=== PATIENT | female | born 1960 | race Caucasian/White ===

== ENCOUNTER 2018-05-26 14:15 | Emergency (ER) | payer BC ==
--- NOTE | 2018-05-26 16:14 | EDM.PDOCBH ---
<Niall Petty - Last Filed: 05/27/18 09:12> ED HPI GENERAL MEDICAL PROBLEM - General Chief Complaint: Drug or Alcohol Abuse Stated Complaint: ALCOHOL ABUSE Time Seen by Provider: 05/26/18 14:54 - Related Data Allergies Allergy/AdvReac Type Severity Reaction Status Date / Time cephalexin Allergy Rash Verified 05/26/18 14:39 Home Meds: Home Meds Ondansetron [Zofran ODT] 4 mg PO Q6H PRN #10 tab.dis 05/27/18 [Rx] COURSE, BEHAVIORAL HEALTH COMP - Course Vital Signs: Last Vital Signs Temp 36.6 C 05/27/18 01:14 Pulse 90 05/27/18 09:05 Resp 16 05/27/18 09:05 BP 150/98 H 05/27/18 09:05 Pulse Ox 95 05/27/18 09:05 Orders, Labs, Meds: Laboratory Tests 05/26/18 05/26/18 05/26/18 Range/Units 16:11 16:14 16:14 WBC 5.29 (3.98-10.04) K/mm3 RBC 4.40 (3.98-5.22) M/mm3 Hgb 15.3 (11.2-15.7) gm/L Hct 45.8 H (34.1-44.9) % MCV 104.1 H (79.4-94.8) fl MCH 34.8 H (25.6-32.2) pg MCHC 33.4 (32.2-35.5) g/dl RDW Std Deviation 50.0 H (36.4-46.3) fL Plt Count 250 (182-369) K/mm3 MPV 8.9 L (9.4-12.3) fl Neutrophils % (Manual) 54 (40-60) % Band Neutrophils % 0 (0-10) % Lymphocytes % (Manual) 39 (20-40) % Atypical Lymphs % 0 % Monocytes % (Manual) 5 (2-10) % Eosinophils % (Manual) 0 L (0.7-5.8) % Basophils % (Manual) 2 H (0.1-1.2) Platelet Estimate Adequate RBC Morph Comment Normal Sodium 144 (136-145) mEq/L Potassium 3.9 (3.5-5.1) mEq/L Chloride 107 (98-107) mEq/L Carbon Dioxide 24 (21-32) mEq/L Anion Gap 16.9 H (5-15) BUN 7 (7-18) mg/dL Creatinine 0.7 (0.55-1.02) mg/dL Est Cr Clr Drug Dosing 70.13 mL/min Estimated GFR (MDRD) > 60 (>60) mL/min BUN/Creatinine Ratio 10.0 L (14-18) Glucose 94 (74-106) mg/dL Calcium 9.0 (8.5-10.1) mg/dL Magnesium 1.9 (1.8-2.4) mg/dl Total Bilirubin 0.5 (0.2-1.0) mg/dL AST 206 H (15-37) U/L ALT 87 H (14-59) U/L Alkaline Phosphatase 94 (46-116) U/L Total Protein 7.1 (6.4-8.2) g/dl Albumin 3.6 (3.4-5.0) g/dl Globulin 3.5 gm/dL Albumin/Globulin Ratio 1.0 (1-2) TSH 3rd Generation 1.180 (0.358-3.74) uIU/mL Salicylates (2.8-20) mg/dL Urine Opiates Screen Negative (LMLRMS=612) Ur Buprenorphine Scrn Negative (CUTOFF=10) Ur Oxycodone Screen Negative (UJG7QC=821) Urine Methadone Screen Negative (ENYCXH=508) Ur Propoxyphene Screen Negative (BNWQKJ=069) Acetaminophen 0 L (10-30) ug/mL Ur Barbiturates Screen Negative (ZPSUDT=169) Ur Tricyclics Screen Negative (PJTONG=210) Ur Phencyclidine Scrn Negative (CUTOFF=25) Ur Amphetamine Screen Negative (HPMPCO=035) U Methamphetamines Scrn Negative (KFEGAI=712) U Benzodiazepines Scrn Negative (GJYJJX=177) U Cocaine Metab Screen Negative (HTFYNE=442) U Marijuana (THC) Screen Negative (CUTOFF=50) Ethyl Alcohol 0.37 (0.00) gm% 05/26/18 Range/Units 16:14 WBC (3.98-10.04) K/mm3 RBC (3.98-5.22) M/mm3 Hgb (11.2-15.7) gm/L Hct (34.1-44.9) % MCV (79.4-94.8) fl MCH (25.6-32.2) pg MCHC (32.2-35.5) g/dl RDW Std Deviation (36.4-46.3) fL Plt Count (182-369) K/mm3 MPV (9.4-12.3) fl Neutrophils % (Manual) (40-60) % Band Neutrophils % (0-10) % Lymphocytes % (Manual) (20-40) % Atypical Lymphs % % Monocytes % (Manual) (2-10) % Eosinophils % (Manual) (0.7-5.8) % Basophils % (Manual) (0.1-1.2) Platelet Estimate RBC Morph Comment Sodium (136-145) mEq/L Potassium (3.5-5.1) mEq/L Chloride (98-107) mEq/L Carbon Dioxide (21-32) mEq/L Anion Gap (5-15) BUN (7-18) mg/dL Creatinine (0.55-1.02) mg/dL Est Cr Clr Drug Dosing mL/min Estimated GFR (MDRD) (>60) mL/min BUN/Creatinine Ratio (14-18) Glucose (74-106) mg/dL Calcium (8.5-10.1) mg/dL Magnesium (1.8-2.4) mg/dl Total Bilirubin (0.2-1.0) mg/dL AST (15-37) U/L ALT (14-59) U/L Alkaline Phosphatase (46-116) U/L Total Protein (6.4-8.2) g/dl Albumin (3.4-5.0) g/dl Globulin gm/dL Albumin/Globulin Ratio (1-2) TSH 3rd Generation (0.358-3.74) uIU/mL Salicylates 1.5 L (2.8-20) mg/dL Urine Opiates Screen (VPZKMX=902) Ur Buprenorphine Scrn (CUTOFF=10) Ur Oxycodone Screen (SAV5UY=100) Urine Methadone Screen (AELRMG=980) Ur Propoxyphene Screen (WEFKYG=076) Acetaminophen (10-30) ug/mL Ur Barbiturates Screen (NRHBNN=889) Ur Tricyclics Screen (IABFTF=479) Ur Phencyclidine Scrn (CUTOFF=25) Ur Amphetamine Screen (EXOVDS=848) U Methamphetamines Scrn (SGUQQY=442) U Benzodiazepines Scrn (TDJVCU=991) U Cocaine Metab Screen (HCEIUE=612) U Marijuana (THC) Screen (CUTOFF=50) Ethyl Alcohol (0.00) gm% Medications Discontinued Medications Generic Name Dose Route Start Last Admin Trade Name Freq PRN Reason Stop Dose Admin Lactated Ringer's 1,000 mls @ 125 mls/hr 05/26/18 16:00 05/26/18 16:40 Ringers, Lactated IV 125 mls/hr ASDIRECTED SVETLANA Administration Lorazepam 1 mg 05/26/18 20:33 05/27/18 01:05 Ativan IVPUSH 05/26/18 20:34 Not Given ONETIME STA Lorazepam 1 mg 05/27/18 03:59 05/27/18 04:05 Ativan IVPUSH 1 mg Q2H PRN Administration withdrawl s/s Lorazepam 1 mg 05/27/18 07:10 05/27/18 07:20 Ativan IVPUSH 05/27/18 07:11 1 mg ONETIME ONE Administration Metoclopramide HCl 10 mg 05/26/18 18:53 05/26/18 19:14 Reglan IVPUSH 05/26/18 18:54 10 mg ONETIME STA Administration Metoclopramide HCl 5 mg 05/27/18 03:45 05/27/18 03:54 Reglan IVPUSH 05/27/18 03:46 5 mg ONETIME ONE Administration Ondansetron HCl 4 mg 05/26/18 17:23 05/26/18 17:30 Zofran IVPUSH 05/26/18 17:24 4 mg ONETIME ONE Administration Ondansetron HCl 4 mg 05/27/18 01:06 05/27/18 01:11 Zofran IVPUSH 05/27/18 01:07 4 mg ONETIME ONE Administration Ondansetron HCl 4 mg 05/27/18 07:10 05/27/18 07:20 Zofran IVPUSH 05/27/18 07:11 4 mg ONETIME ONE Administration Medical Clearance: 05/27/18 07:29 .Did speak with a [facility] crisis provider this morning. Send someone out from [facility] to do an assessment on her this morning and will come up with a plan for disposition either to the [facility] center or possibly to [facility] or another alcohol and drug treatment center. She is complaining of more nausea and some tremulousness this morning. Repeat Ativan 1 mg IV and Zofran 4 mg IV. 05/27/18 08:12 [facility] has an intake provider available to see Nasima saw her slammed at 0930 hrs. this morning. Possibility of admission to the [facility] center for treatment does exist this morning. 05/27/18 09:00 prescription written for Zofran 4 mg sublingual to be taken every 4-6 hours necessary for relief of nausea vomiting. 10 tablets were provided Departure - Departure Time of Disposition: 08:49 Disposition: Home, Self-Care 01 Condition: Fair Clinical Impression: Alcohol abuse, daily use, Alcohol intoxication - Discharge Information *PRESCRIPTION DRUG MONITORING PROGRAM REVIEWED*: Not Applicable *COPY OF PRESCRIPTION DRUG MONITORING REPORT IN PATIENT ERMIAS: Not Applicable Prescriptions: Ondansetron [Zofran ODT] 4 mg PO Q6H PRN #10 tab.dis PRN Reason: Nausea or vomiting Instructions: Alcohol Use Disorder Referrals: Maximilian Matamoros MD [Primary Care Provider] - Additional Instructions: Evaluation the emergency room due to acute alcohol intoxication with a blood alcohol of 0.37 g percent. You're treated with intravenous fluids and medications to settle her stomach. Also Ativan 1 mg IV for alcohol withdrawal symptoms. The [facility] has an opening at 0930 hrs. and and is willing to accommodate you this morning in regards to formal program that is suitable to both of you for aid to help stop drinking alcohol. please trauma from the ed to the clinic at this time. <Christopher Hutchinson - Last Filed: 05/27/18 19:23> ED HPI GENERAL MEDICAL PROBLEM - General Source of Information: Reports: Patient, Family (3 daughters), RN Notes Reviewed History Limitations: Reports: Intoxication - History of Present Illness INITIAL COMMENTS - FREE TEXT/NARRATIVE: The patient states that she has a chronic daily alcoholic ever since she was 18 years old. She has difficulty saying how many drinks per day she has, but it sounds like approximately 5 x 1.5 oz vodka per day. She does not recall when she last had a period of sobriety. She has never sought either outpatient or inpatient treatment for her alcoholism. When asked what happened that prompted her to come to the ED today, she stated that she began vomiting today, and that she decided that she had simply had enough. She states that she has had only 2 drinks today, her last being about 15 minutes prior to coming to the ED. Other than the nausea and emesis, however, the patient denies any other signs of alcohol withdrawal, such as tremulousness or anxiety, agitation, restlessness , insomnia, diaphoresis, palpitations, or headache. The patient's PCP is Dr. Maximilian Matamoros, although the patient states that she has not seen him in about 3 years. 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: Musculoskeletal History: Reports: Fracture (right foot) - Past Surgical History HEENT Surgical History: Reports: Oral Surgery GI Surgical History: Reports: Appendectomy Female Surgical History: Reports: Hysterectomy, Salpingo-Oophorectomy ( unilateral), Other (See Below) (Tubal x 1) Musculoskeletal Surgical History: Reports: ORIF (right foot) Social & Family History - Tobacco Use Smoking Status *Q: Current Every Day Smoker Years of Tobacco use: 41 Packs/Tins Daily: 0.2 - Caffeine Use Caffeine Use: Reports: Coffee - Alcohol Use Alcohol Use History: Yes Alcohol Use Frequency: Daily - Recreational Drug Use Recreational Drug Use: Yes Drug Use in Last 12 Months: No Recreational Drug Type: Reports: Marijuana/Hashish (last smoked around 2008) - Living Situation & Occupation Living situation: Reports: , with Spouse Occupation: Employed ([employer]) ED ROS GENERAL - Review of Systems Review Of Systems: ROS reveals no pertinent complaints other than HPI. ED EXAM, BEHAVIORAL HEALTH - Physical Exam Exam: See Below Exam Limited By: No Limitations General Appearance: Alert, WD/WN, No Apparent Distress, Other (Smell of alcohol) Eye Exam: Bilateral Eye: EOMI, Normal Inspection Ears: Normal External Exam, Hearing Grossly Normal Nose: Normal Inspection Throat/Mouth: Normal Inspection, Normal Lips, Normal Voice, No Airway Compromise Head: Atraumatic, Normocephalic Neck: Normal Inspection, Full Range of Motion Respiratory/Chest: No Respiratory Distress, Lungs Clear, Normal Breath Sounds, No Accessory Muscle Use Cardiovascular: Normal Peripheral Pulses, Regular Rate, Rhythm, No Gallop, No JVD, No Murmur, No Rub GI/Abdominal: Normal Bowel Sounds, Soft, Non-Tender, No Organomegaly, No Distention, No Abnormal Bruit, No Mass (Female) Exam: Deferred Rectal (Female) Exam: Deferred Back Exam: Normal Inspection, Full Range of Motion, NT Extremities: Normal Inspection, Normal Range of Motion, No Pedal Edema, Normal Capillary Refill Neurological: Alert, No Motor/Sensory Deficits, Oriented x 3, Other (Slurred speech, consistent with alcohol intoxication) Skin Exam: Warm, Dry, Intact, Normal color, No rash EKG INTERPRETATION EKG Date: 05/26/18 Time: 16:08 Rhythm: NSR Rate (Beats/Min): 80 [place]: Normal P-Wave: Present QRS: Normal ST-T: Normal QT: Normal Comparison: NA - No Prior EKG COURSE, BEHAVIORAL HEALTH COMP - Course Medical Clearance: 05/26/18 17:48 Test results discussed with the patient and several family members. The patient' s workup is completely unremarkable, with the exception of an alcohol level elevated at 0.37. Presuming the patient detoxifies at a level of 25 mg/dL per hour, the patient's alcohol level should be 0.08 around 03:50 in the morning, and zero around 07:00. At present, the patient has had some nausea and vomiting, but shows NO signs of alcohol withdrawal. As such, while she has some increased risk of developing severe alcohol withdrawal symptoms, she does not require any benzodiazepines at this time. I therefore do not feel that the patient needs to be hospitalized. I proposed that we keep the patient in the ED overnight, giving her IV fluid and antiemetics as necessary. If the patient develops signs of alcohol withdrawal, consideration could be given to starting benzodiazepines and admitting the patient at that time, however, if the patient remains withdrawal-symptom free, the plan would be to discharge her home and direct her to [facility] in the morning, for an outpatient evaluation. The patient and her family are agreeable with this plan. 05/26/18 20:34 Notified by Susan MUÑIZ that the patient is feeling anxious. The patient reported that she ordinarily would drink alcohol to treat her feelings of anxiety. There is no strict medical requirement to treat the patient with a benzodiazepine at this time, as her CIWA -Ar score is only 5, however, I have ordered 1 mg of IV Ativan to help make her comfortable. 05/26/18 22:[address] Sari Garcia, and care of the patient turned over to him at this time, for change of shift.
[2018-05-26] MEDS: Lactated Ringers 1,000 ML IV SCH (16:40)
[2018-05-26 16:54] LABS: ACETAMINOPHEN 0 ug/mL (10-30)
[2018-05-26] MEDS: Ondansetron 4 MG/2 ML SDV IVPUSH ONE (17:30)
[2018-05-26] MEDS: Metoclopramide 10 MG/2 ML SDV IVPUSH STA (19:14)
[2018-05-27] MEDS: LORazepam 2 MG/ML SDV IVPUSH STA (01:05)
[2018-05-27] MEDS: Ondansetron 4 MG/2 ML SDV IVPUSH ONE ×2 (01:11→07:20)
[2018-05-27] MEDS: Metoclopramide 10 MG/2 ML SDV IVPUSH ONE (03:54)
[2018-05-27] MEDS: LORazepam 2 MG/ML SDV IVPUSH PRN (04:05)
[2018-05-27] MEDS: LORazepam 2 MG/ML SDV IVPUSH ONE (07:20)
== END 2018-05-27 09:37 | disposition home or self-care (01) ==
LOC: JD.ED 14:15
DX: F10.129 Alcohol abuse with intoxication, unspecified (principal); Y90.8 Blood alcohol level of 240 mg/100 ml or more; F17.210 Nicotine dependence, cigarettes, uncomplicated; Z88.1 Allergy status to other antibiotic agents
CPT/HCPCS: 36415; 80053; 80306; 83735; 84443; 85007; 85027; 93005; 96361; 96374; 96375; 96376; 99285; G0480; J2060; J2405; J2765; J7120; 93010; 99284